=== PATIENT | female | born 1995 | race Caucasian/White ===

== ENCOUNTER 2024-06-06 20:42 | Emergency (ER) | payer BC, SELFPAY ==
--- OUTSIDE RECORDS SUMMARY | 2024-06-06 20:44 | XMS_ITS | Clinical Summary ---
Author Organization [email or web address] Address [address] [place] [address] Care Team Providers Care Knuckler Name Role Phone Peter Stern MD Unavailable + Tricia Holbrook RN Unavailable [phone] Unavailable Unavailab Stephanie AbdulSW Unavailable Un available Marisel Rosalielupis Wall NP Unavailable [phone] Damaris Fletcher DO Primary Care Provider [phone] Allergies No known active allergies Medications adapalene-benzoy l peroxide (EPIDUO) 0.1-2.5 % topical gelIndications:A cne, unspecified acne type Apply to face at bedtime. 45 g 1 12/28/2021 Active escitalopram oxalate (LEXAPRO) 20 mg tabletIndication s:MDD (major depressive disorder), recurrent episode, mild Take 1 Tablet (20 mg) by mouth once daily. 90 Tablet 3 01/04/2024 Active levothyroxine (SYNTHROID) 88 mcg tabletIndication s:Hypothyroidism (acquired) Take 1 Tablet (88 mcg) by mouth once daily. 90 Tablet 3 02/16/2024 Active Active Problems Patient Care Coordination No te Formatting of this note migh t be different from the original. Weight Management - Adult Surgical Program -- [place] Initial Consult 08/16/2018 with Peter Yap MD Intake: 238# (5'4; bmi 40.85) Planned Operation: Laparoscopic Sleeve Gastrectomy Payor: ALBERTO MOHAMUD / Plan: [employer]UMMINS [employer] / Product Type: *No Product type* / Est. Pgm Completion: February, Procedure Location: [place] Co-morbidities: Orders: Labs PENDING, ordered 08/16/2018 Imaging Abdominal Ultrasound PENDING, ordered 08/16/2018 Pre-Surgery Program Consults: Registered Dietitian: PENDING / 6 consecutive Mental Health: PENDING Referrals: - Sleep Medicine for AYDEN work-up: +2 during rooming - Hematology: N/A - Gastroenterology: N/A - Cardiology: N/A - PT: Referred? Exercise regimen (unless contraindicated) to improve pulmonary reserve prior to surgery, supervised by exercise therapist or other qualified professional -Tobacco Cessation: N/A ( reports that she quit smoking about 5 years ago. Her smoking use included cigarettes. She has a 0.10 pack-year smoking history. She has never used smokeless tobacco.) -Dental: N/A NOTES: Info Session: Online (Post Test Score: 100%) Binge Eating Disorder Concerns: 2?, not all questions answered in packet Problem Noted Date Diagnosed Date Cervical cancer screening 07/11/2021 Overview (02/24/2024): 01/2018 ASCUS/HPV negative 07/2021 NIL 02/2024 NIL/HPV negative. Plan: Pap/HPV due 02/2029. MDD (major depressive disord er), recurrent severe, without psychosis 2021 Posttraumatic stress disorder 07/16/2020 Morbid obesity with BMI of 40.0-44.9, adult 10/2018 Pseudotumor cerebri 09/29/2016 Hypothyroid 07/04/2013 Sleep walking 06/22/2013 Premenstrual tension 11/13/2010 Resolved Problems Problem Noted Date Diagnosed Date Resolved Date Moderate episode of recurren t major depressive disorder 07/16/2020 05/20/2021 Adjustment disorder with mix ed anxiety and depressed mood 09/30/2011 06/14/2018 Anxiety and depression 09/11/201108/29 Encounters Date Type Department Care Team Description 03/28/2024 9:30 AM MANAGER MANAGEMENT Orders Only [facility] [address] [place] [address] Lab, [place] [facility] 03/28/2024 Travel from Last 3 Months Immunizations Name Administration Dates Next Due AMB Influenza, IIV3 (Age >=3 years)(Flu Clinic Only) 02/06/2010 COVID-19 vaccine (echoecho NTRenRen [employer] 30mcg/0.3mL) PF, MDV 05/06/2021 DTaP 12/02/2000, 8,1996,10/04,1996 HIB PRP-D (ProHIBIT) 1996 HIB-HepB (Comvax) 1996,1996 Hepatitis A (Peds) 11/06/2014,02/06/2009 Hepatitis B (Peds) 1996 Human Papilloma Virus Vaccine 09/22/2011, 009,11/20/2008 INFLUENZA, IIV3 PF (AGE >= 6 MO) 02/16/2024 Inactivated Polio Vaccine 12/02/2000 Influenza A (H1N1), Inactivated 04/25/2009 Influenza, IIV3 (Age >=3 years) 12/31/19 12,02/08/2008,05/24/2006,04/09 Influenza, IIV4 12/23/2021,,04/21/2019,02/10,03/17/2016 Influenza,LAIV4 Live Intrana shawn (Flumist) 02/06/2009 MENINGOCOCCAL VACCINE 2 VIAL 2MO-55YO (MENVEO) 12/05/2013 MMR 12/02/2000,05/31/1997 Oral Polio Vaccine 1996,1996, 997 Tdap 04/21/2019,11/20/2008 Varicella Vaccine 02/06/2009,11/20/2008 Family History Medical History Relation Name Comments Other Father Severe mental i llness, Substance Abuse, Depression, Anxiety Hypertension Maternal Grandfather Cancer-breast Maternal Grandmother Lashaun Ann GI Disease Mother Felicity Persing ulcer Hypertension Mother Felicity Persing Thyroid Disease Mother Felicity Persing No Known Problems Paternal Grandfather No Known Problems Paternal Grandmother Relation Name Status Comments Father Other Maternal Grandfather Maternal Grandmother Lashaun Ann Mother Felicity Persing Alive Paternal Grandfather Paternal Grandmother Social History Tobacco Use Types Packs/Day Years Used Date Smoking Tobacco: Former Cigarettes 0.3 0.6 1 05/13/2019 - 10/31/2020 Smokeless Tobacco: Never Tobacco Cessation:Counseling Given: Not Answered Alcohol Use Standard Drinks/Week Comments Not Currently 0 (1 standard drink = 0.6 oz pur e alcohol) Rare PHQ-2 Answer Date Recorded PHQ-2 TOTAL SCORE 0 01/04/2024 Social Connections Answer Date Recorded Do you often feel lonely or isolated from those around you? 4 02/14/2024 Alcohol Use Answer Date Recorded How often do you have a drink containing alcohol ? 1 01/21/2022 How many drinks containing a lcohol do you have on a typical day when you are drinking? 0 01/21/2022 How often do you have five or more drinks on one occasion? 0 01/21/2022 Financial Resource Strain Answer Date R ecorded Difficulty of Paying Living Expenses 3 02/14/2024 Difficulty of Paying Living Expenses Not on file 02/14/2024 Food Insecurity Answer Date Recorded Do you worry your food will run out before you are able to buy more? 1 02/14/2024 Transportation Needs Answer Date Record ed Does lack of transportation keep you from medica l appointments? 1 02/14/2024 Does lack of transportation keep you from work, meetings or getting things that you need? 1 02/14/2024 Housing Stability Answer Date Recorded What is your housing situation today? 1 02/14/2024 Utilities Answer Date Recorded Do you have trouble paying f or utilities (for example, heat, electricity, water, phone)? 1 02/14/2024 Comments No Sex and Gender Information Value Date Recorded Sex Assigned at Female 02/08/2020 2:29 PM CDT Legal Sex Female 5:18 AM MANAGER MANAGEMENT Gender Identity Female 02/08/2020 2:29 PM CDT Sexual Orientation Bisexual 04/06/2022 9: 16 AM MANAGER MANAGEMENT Occupation Industry Job Start Date Job End Date Unemployed Not on file Not on file Not on file Obstetrics History Para Term AB IAB SAB Ectopic Multiple Livin g Live Births 1 0 0 0 1 0 0 0 0 0 Date Outcome GA Total Labor Labor/2nd/3rd Weight Sex Type Anes PTL Jaky A1 A5 Name Clin AB Comments G1- SAB at 9w3d with gestati onal sac measuring 5w Last Filed Vital Signs Vital Sign Reading Time Taken Comments Blood Pressure 110/76 02/16/2024 10:24 AM MANAGER MANAGEMENT Pulse 79 02/16/2024 10:24 AM MANAGER MANAGEMENT Temperature 36.8 C (98.3 F) 02/12/2020 2:36 PM MANAGER MANAGEMENT Respiratory Rate 16 04/16/2017 1:27 PM MANAGER MANAGEMENT Oxygen Saturation 100% 02/16/2024 10:24 AM MANAGER MANAGEMENT Inhaled Oxygen Concentration - - Weight 104.3 kg (230 lb) 02/16/2024 10:24 AM MANAGER MANAGEMENT Height 163.2 cm (5' 4.25) 02/16/2024 10:[address] Body Mass Index 39.17 02/16/2024 10:24 AM MANAGER MANAGEMENT Plan of Treatment Health Maintenance Due Date Last Done Comments COVID-19 vaccine series ( season) 2023 05/27/2021, 05/06/2021 Depression screening for age 12+ 01/03/2025 01/04/2024, 05/04/2023, 11/11/2022, Additional history exists BMI (ht and wt on same day) for age 18+ 02/15/2025 02/16/2024, 12/23/2021, 09/10/2021, Additional history exists Pap test for age 21-65 02/15/2029 , 08/08/2021, 02/09/2018, Additional history exists Tetanus booster 04/21/2029 04/21/2019, 11/20/2008 Tdap Completed 04/21/2019, 11/20/2008 HIV for age 15-65 Completed 08/08/2021, 07/24/2019 Influenza for age 9-49 Completed , 12/23/2021, 06/04/2020, Additional history exists Hepatitis C screening for age 18-79 Completed 03/28/2024, 02/16/2024 Pneumococcal series for age 6-49 Aged Out No longer eligible based on patient's age to complete this topic Procedures Procedure Name Priority Date/Time Associated Diagnosis Comments TSH WITH REFLEX Routine 03/28/2024 9:33 AM MANAGER MANAGEMENT Hypothyroidism (acquired) ANTI HCV Routine 03/28/2024 9:33 AM MANAGER MANAGEMENT Routine general medical examination at a health care facility TERRITORY ACCOUNT REPRESENTATIVE THIN PREP PAP AND HPV DNA - AGE 25 AND OVER ([facility]) Routine 02/16/2024 11:33 AM MANAGER MANAGEMENT Cervical cancer screening ANTI HIV 1/2 Routine 08/08/2021 11:45 AM CDT Screen for STD (sexually transmitted disease) from Last 3 Months or Most Recently Relevant to Health Maintenance Results * TSH WITH REFLEX (03/28/2024 9:33 AM MANAGER MANAGEMENT) TSH W/REFLEX TO FT4 0.77 mIU/L [facility] Comment: Reference Range > or = 20 Years 0.40-4.50 Ranges First trimester 0.26-2.66 Second trimester 0.55-2.73 Third trimester 0.43-2.91 Blood BLOOD SPECIMEN / Unknown 03/28/2024 9:33 AM MANAGER MANAGEMENT 03/28/2024 9:34 AM MANAGER MANAGEMENT us Damaris Fletcher DO CHEMISTRY Final Resu lt [facility] [address] [place] [address], [facility] [address] [place] [address] * ANTI HCV (03/28/2024 9:33 AM MANAGER MANAGEMENT) HEPATITIS C ANTIBODY NON-REACTI VE NON-REACT KAT [facility] Comment: HCV antibody was non-reactive. There is no laboratory evidence of HCV infection. In most cases, no further action is required. However, if recent HCV exposure is suspected, a test for HCV RNA (test code 43634) is suggested. For additional information please refer to http://education.Sodraft/faq/OUR28a9 (This link is being provided for informational/ educational purposes only.) Blood BLOOD SPECIMEN / Unknown 03/28/2024 9:33 AM MANAGER MANAGEMENT 03/28/2024 9:34 AM MANAGER MANAGEMENT us Damaris Keyanna Justine DO SEND OUTS Final Resu lt [employer] [facility] [address] [place] [address], [place] [phone] [facility] [address] [place] [address] * TERRITORY ACCOUNT REPRESENTATIVE THIN PREP PAP AND HPV DNA - AGE 25 AND OVER ([facility]) (02/16/2024 11:33 AM MANAGER MANAGEMENT) CLINICAL INFORMATION [facility] Comment:SCREENING PAP LMP [facility] Comment:02/01/[address] [facility] Comment:2021, NIL PREV. BX [facility] Comment:NO SOURCE TERRITORY ACCOUNT REPRESENTATIVE [facility] Comment:Cervix STATEMENT OF ADEQUACY [facility] Comment: Satisfactory for evaluation. Endocervical/transformation zone component present. INTERPRETATION/RESU LT [facility] Comment: Cytology Results: Negative for intraepithelial lesion or malignancy. COMMENT [facility] Comment: This Pap test has been evaluated with computer assisted technology. ADVERTISING PHOTOGRAPHER [facility] Comment: DARLENE KRAUSE(ASCP) CT Screening Location: [address] [address] THINPREP TIS PAP ALWAYS MESSAGE [facility] Comment: EXPLANATORY NOTE: The Pap is a screening test for cervical cancer. It is not a diagnostic test and is subject to false negative and false positive results. It is most reliable when a satisfactory sample, regularly obtained, is submitted with relevant clinical findings and history, and when the Pap result is evaluated along with historic and current clinical information. HPV HIGH RISK Not Detected NOT DETECTED [facility] Comment: Not Detected High Risk HPV types (16,18,31,33,35,39,45,51,52, 56,58,59,66,68) were not detected. Other HPV types which cause anogenital lesions may be present. The significance of the other types of HPV in malignant processes has not been established. Methodology: Real Time PCR Other (Other) 02/16/2024 11: 33 AM MANAGER MANAGEMENT 02/17/2024 3:17 AM MANAGER MANAGEMENT Damaris Fletcher DO PATHOLOGY/CYTOLOGY Final R esult [facility] [address] [place] [address], [facility] [address] [place] [address] * ANTI HIV 1/2 (08/08/2021 11:45 AM CDT) HIV-1/HIV-2 ANTIBODY Non-Reacti ve Non-Reacti ve 08/09/2021 6:09 AM CDT [facility] Comment:HIV-1 p24 and HIV-1/ HIV-2 Ab not detected. Blood BLOOD SPECIMEN / Unknown Venipuncture / Unknown 08/08/2021 11:45 AM CDT 08/08/2021 11:45 AM CDT Susan JAMES SEND OUTS Final Result [facility] [address] [place] [address], from Last 3 Months or Most Recently Relevant to Health Maintenance Insurance [facility] [place] [id number] Advance Directives * Full Code (Latest Code Status on File) Date Activated Date Inactivated Comments 05/05/2012 7:18 AM 05/05/2012 2:04 PM Care Teams Knuckler Relationship Specialty Start Date End Date Damaris Fletcher DO [address] [place] [address] PCP - General Family Practice 12/24/21 Peter Stern MD [address] [place] [address] Consulting Physician Surgery - General 08/16/18 Tricia Holbrook, BYRON [address] [place] [address] Registered Nurse Registered Nurse 08/16/[address] [place] [address] Registered Dietitian General Merchandise Manager 08/16/18 Stephanie Liu [facility] [address] [place] [address] Psychologist Skein Yard Drier 08/12/18 Rosalie Joiner NP [address] [place] [address] [address] Psychiatry Nurse Practitioner 08/06/20
[2024-06-06 20:47] VITALS: BP 150/78; PULSE 92; RESP 18; TEMP 36.8; O2SAT 99; BMI 41.2
--- NOTE | 2024-06-06 21:00 | ED.WOUNDLAC ---
HPI - Wound/Laceration General Chief Complaint: Laceration/Wound Stated Complaint: Vaginal Laceration Time Seen by Provider: 06/06/24 20:43 History of Present Illness HPI narrative: This 29-year-old female comes in with an injury to her vaginal area. She states that she was having intercourse and had sudden onset of pain and has a small laceration in the right labia area. Related Data Home Medications ?Medication ?Instructions ?Recorded ?Confirmed escitalopram oxalate 20 mg tablet 20 mg PO DAILY 06/06/24 06/06/24 levothyroxine 88 mcg tablet 88 mcg PO DAILY 06/06/24 06/06/24 Allergies Allergy/AdvReac Type Severity Reaction Status Date / Time No Known Drug Allergies Allergy Verified 06/06/24 20:49 Review of Systems Status of ROS: Reports: 10 or more systems reviewed and unremarkable except as noted in History and below Narrative: Constitutional: No fevers, no weight gain or loss. Eyes: No discharge. No vision changes. HENT: No congestion, no sore throat, no ear pain. Cardiovascular: No chest pain, no palpitations. Respiratory: No shortness of breath, no wheezes, no cough. Gastrointestinal: No abdominal pain, no vomiting, no diarrhea. Genitourinary: No dysuria, no hematuria. Vaginal laceration. Musculoskeletal: Normal range of motion. Skin: No rashes, no pruritis. Neurological: No dizziness, weakness, sensory change, speech change. Endo/Heme/Allergies: No bruising or bleeding. No polydipsia. Pysch: no suicidality, no anxiety, no insomnia. All other systems reviewed and are negative. [facility] Medical History (Updated 06/06/24 @ 21:04 by Wily Fontana MD) Tonsillitis ?J03.90 - Acute tonsillitis, unspecified (ICD-10) GERD (gastroesophageal reflux disease) ?K21.9 - Gastro-esophageal reflux disease without esophagitis (ICD-10) Anxiety ?F41.9 - Anxiety disorder, unspecified (ICD-10) Adjustment disorder with mixed anxiety and depressed mood ?F43.23 - Adjustment disorder with mixed anxiety and depressed mood (ICD-10) MDD (major depressive disorder) ?F32.9 - Major depressive disorder, single episode, unspecified (ICD-10) PTSD (post-traumatic stress disorder) ?F43.10 - Post-traumatic stress disorder, unspecified (ICD-10) Morbid obesity ?E66.01 - Morbid (severe) obesity due to excess calories (ICD-10) Pseudotumor cerebri ?G93.2 - Benign intracranial hypertension (ICD-10) Hypothyroid ?E03.9 - Hypothyroidism, unspecified (ICD-10) Sleep walking ?F51.3 - Sleepwalking [somnambulism] (ICD-10) Premenstrual tension ?N94.3 - Premenstrual tension syndrome (ICD-10) Surgical History (Updated 06/06/24 @ 20:54 by Óscar Deluna RN) History of wisdom tooth extraction ?K08.409 - Partial loss of teeth, unspecified cause, unspecified class (ICD-10) Hx of tonsillectomy ?Z90.89 - Acquired absence of other organs (ICD-10) History of laparoscopic cholecystectomy ?Z90.49 - Acquired absence of other specified parts of digestive tract (ICD-10) Social History Smoking Status: Former smoker Second hand tobacco smoke exposure: No How often do you have a drink containing alcohol: never AUDIT-C Alcohol total score: 0 Non-prescribed substance use: marijuana (any form) Exam Narrative: Exam Narrative: Constitutional: Well-developed, well-nourished, no acute distress. HEENT: Normocephalic, atraumatic. Neck: Normal range of motion. Nontender. Supple. Heart: Intact distal pulses. Lungs: No chest discomfort. No wheezes, rhonchi, or rales. Abdomen: Nontender. Genital urinary: Small superficial laceration in the right labia majora. No active bleeding. Back: Normal range of motion. Extremities: Normal range of motion. No injury. Skin: Intact. No rash. Warm. No erythema or pallor. Neurologic: No altered sensation. No weakness. Alert and oriented. Psychiatric: No suicidality. No anxiety or depression. No insomnia. Nursing notes and vitals signs are reviewed. Const: Vital Signs, click to edit/add: Vital Signs - 24 hr 06/06/24 20:47 Temperature 98.2 F Pulse Rate [Right Pulse Oximeter] 92 Respiratory Rate 18 Blood Pressure [Ri ght Upper Arm] 150/78 H Pulse Oximetry 99 Oxygen Delivery Me thod Room Air Course Vital Signs Vital signs: Initial Vital Signs Temperature 98.2 F 06/06/24 20:47 Temperature Source Temporal Artery Scan 06/06/24 20:47 Pulse Rate 92 06/06/24 20:47 Respiratory Rate 18 06/06/24 20:47 Blood Pressure 150/78 H 06/06/24 20:47 Blood Pressure Mean 102 06/06/24 20:47 Blood Pressure Position Sitting 06/06/24 20:47 Pulse Oximetry 99 06/06/24 20:47 Oxygen Delivery Method Room Air 06/06/24 20:47 Vital Signs Temperature 98.2 F 06/06/24 20:47 Pulse Rate 92 06/06/24 20:47 Respiratory Rate 18 06/06/24 20:47 Blood Pressure 150/78 H 06/06/24 20:47 Pulse Oximetry 99 06/06/24 20:47 Oxygen Delivery Method Room Air 06/06/24 20:47 Temperature 98.2 F 06/06/24 20:47 Pulse Rate 92 06/06/24 20:47 Respiratory Rate 18 06/06/24 20:47 Blood Pressure 150/78 H 06/06/24 20:47 Pulse Oximetry 99 06/06/24 20:47 Oxygen Delivery Method Room Air 06/06/24 20:47 MDM - Wound/Laceration MDM Narrative Medical decision making narrative: This patient comes in with a laceration to her vaginal labia. I examined her with the presence of a female attendant in the room and saw of a superficial laceration in the right labia majora. They skin edges are nicely approximated when at a typical rest position. I gave reassurance is and indicated that no repair is indicated and this should heal fine without any consequence. She was greatly relieved to hear this. Discharge Plan Discharge Clinical Impression: Laceration Patient Disposition: Home, Self-Care Condition: Stable Additional Instructions: Continue current plans. Use [id number] medicines as needed and directed. Follow up with MD return if worsening. Prescriptions: No Action levothyroxine 88 mcg tablet 88 mcg PO DAILY escitalopram oxalate 20 mg tablet 20 mg PO DAILY Stand Alone Forms: [employer] Info Instructions
[2024-06-06 21:08] VITALS: BP 132/71; PULSE 85; RESP 18; TEMP 36.8; O2SAT 99
[2024-06-06 21:09] VITALS: BP 132/71; PULSE 85; RESP 18; TEMP 36.8
--- OUTSIDE RECORDS SUMMARY | 2024-06-06 21:18 | XMS_ITS | Clinical Summary ---
Author Organization [facility] Address [address] [place] [id number] Care Team Providers Care Configuration Management Specialist Name Role Phone Peter Stern MD Unavailable + Tricia Holbrook RN Unavailable [phone] Unavailable Unavailab Stephanie AbdulSW Unavailable Un available Marisel Rosalielupis Wall NP Unavailable [phone] Damaris Fletcher DO Primary Care Provider [phone] Allergies No known active allergies Medications adapalene-benzoy [...] Weight Management - Adult Surgical Program -- [facility] Initial Consult 08/16/2018 with Peter Yap MD Intake: 238# (5'4; bmi 40.85) Planned Operation: Laparoscopic Sleeve Gastrectomy Payor: ALBERTO MOHAMUD / Plan: [employer]ANTAGE / Product Type: *No Product type* / Est. Pgm Completion: February, Procedure Location: [place] Co-morbidities: Orders: Labs PENDING, ordered 08/16/2018 Imaging [...] Department Care Team Description 03/28/2024 9:30 AM CAMPAIGN SPECIALIST Orders Only [facility] [address] [place] [address] Lab, [place] [facility] 03/28/2024 Travel from Last 3 Months Immunizations Name Administration Dates Next Due AMB Influenza, IIV3 (Age >=3 years)(Flu Clinic Only) 02/06/2010 COVID-19 vaccine ([employer] 30mcg/0.3mL) PF, MDV 05/06/2021 DTaP 12/02/2000, 8,1996,10/04,1996 [...] PM CDT Legal Sex Female 5:18 AM CAMPAIGN SPECIALIST Gender Identity Female 02/08/2020 2:29 PM CDT Sexual Orientation Bisexual 04/06/2022 9: 16 AM CAMPAIGN SPECIALIST Occupation Industry Job Start Date Job End [...] Comments Blood Pressure 110/76 02/16/2024 10:24 AM CAMPAIGN SPECIALIST Pulse 79 02/16/2024 10:24 AM CAMPAIGN SPECIALIST Temperature 36.8 C (98.3 F) 02/12/2020 2:36 PM CAMPAIGN SPECIALIST Respiratory Rate 16 04/16/2017 1:27 PM CAMPAIGN SPECIALIST Oxygen Saturation 100% 02/16/2024 10:24 AM CAMPAIGN SPECIALIST Inhaled Oxygen Concentration - - Weight 104.3 kg (230 lb) 02/16/2024 10:24 AM CAMPAIGN SPECIALIST Height 163.2 cm (5' 4.25) 02/16/2024 10:[address] Body Mass Index 39.17 02/16/2024 10:24 AM CAMPAIGN SPECIALIST Plan of Treatment Health Maintenance Due Date [...] TSH WITH REFLEX Routine 03/28/2024 9:33 AM CAMPAIGN SPECIALIST Hypothyroidism (acquired) ANTI HCV Routine 03/28/2024 9:33 AM CAMPAIGN SPECIALIST Routine general medical examination at a health care facility DIRECTOR OF CREATIVE SERVICES THIN PREP PAP AND HPV DNA - AGE 25 AND OVER ([facility]) Routine 02/16/2024 11:33 AM CAMPAIGN SPECIALIST Cervical cancer screening ANTI HIV 1/2 Routine 08/08/2021 11:45 AM CDT Screen for STD (sexually transmitted disease) from Last 3 Months or Most Recently Relevant to Health Maintenance Results * TSH WITH REFLEX (03/28/2024 9:33 AM CAMPAIGN SPECIALIST) TSH W/REFLEX TO FT4 0.77 mIU/L [facility] Comment: Reference Range > or = 20 Years 0.40-4.50 Ranges First trimester 0.26-2.66 Second trimester 0.55-2.73 Third trimester 0.43-2.91 Blood BLOOD SPECIMEN / Unknown 03/28/2024 9:33 AM CAMPAIGN SPECIALIST 03/28/2024 9:34 AM CAMPAIGN SPECIALIST us Damaris Fletcher DO CHEMISTRY Final Resu lt [facility] [address] [place] [address], [facility] [address] [place] [address] * ANTI HCV (03/28/2024 9:33 AM CAMPAIGN SPECIALIST) HEPATITIS C ANTIBODY NON-REACTI VE NON-REACT KAT [facility] Comment: HCV antibody was non-reactive. There is no laboratory evidence of HCV infection. In most cases, no further action is required. However, if recent HCV exposure is suspected, a test for HCV RNA (test code 37682) is suggested. For additional information please refer to http://education.Cloudacc/faq/UQU44a2 (This link is being provided for informational/ educational purposes only.) Blood BLOOD SPECIMEN / Unknown 03/28/2024 9:33 AM CAMPAIGN SPECIALIST 03/28/2024 9:34 AM CAMPAIGN SPECIALIST us Damaris Keyanna Justine DO SEND OUTS Final Resu lt [facility] [address] [place] [address], [place] [phone] [facility] [address] [place] [address] * DIRECTOR OF CREATIVE SERVICES THIN PREP PAP AND HPV DNA - AGE 25 AND OVER ([employer]) (02/16/2024 11:33 AM CAMPAIGN SPECIALIST) CLINICAL INFORMATION [facility] Comment:SCREENING PAP LMP [facility] Comment:02/01/24 PREV. PAP [facility] Comment:2021, NIL PREV. BX [facility] Comment:NO SOURCE DIRECTOR OF CREATIVE SERVICES [facility] Comment:Cervix STATEMENT OF ADEQUACY [facility] Comment: Satisfactory for evaluation. Endocervical/transformation zone component present. INTERPRETATION/RESU LT [facility] Comment: Cytology Results: Negative for intraepithelial lesion or malignancy. COMMENT [facility] Comment: This Pap test has been evaluated with computer assisted technology. PESTICIDE APPLICATOR [facility] Comment: DARLENE KRAUSE(ASCP) CT Screening Location: [address] [address] THINPREP TIS PAP ALWAYS MESSAGE [facility] Comment: EXPLANATORY NOTE: The Pap is a [...] HPV HIGH RISK Not Detected NOT DETECTED [facility] Comment: Not Detected High Risk HPV types (16,18,31,33,35,39,45,51,52, 56,58,59,66,68) were not detected. Other HPV types which cause anogenital lesions may be present. The significance of the other types of HPV in malignant processes has not been established. Methodology: Real Time PCR Other (Other) 02/16/2024 11: 33 AM CAMPAIGN SPECIALIST 02/17/2024 3:17 AM CAMPAIGN SPECIALIST Damaris Fletcher DO PATHOLOGY/CYTOLOGY Final R esult [facility] [address] [place] [address], [facility] [address] [place] [address] * ANTI HIV 1/2 (08/08/2021 11:45 AM CDT) HIV-1/HIV-2 ANTIBODY Non-Reacti ve Non-Reacti ve 08/09/2021 6:09 AM CDT [facility] Comment:HIV-1 p24 and HIV-1/ HIV-2 Ab not detected. Blood BLOOD SPECIMEN / Unknown Venipuncture / Unknown 08/08/2021 11:45 AM CDT 08/08/2021 11:45 AM CDT Susan JAMES SEND OUTS Final Result [facility] [address] [place] [address], from Last 3 Months or Most Recently Relevant to Health Maintenance Insurance [facility] ADVANTAGE [place] [id number] Advance Directives * Full Code (Latest Code Status on File) Date Activated Date Inactivated Comments 05/05/2012 7:18 AM 05/05/2012 2:04 PM Care Teams Configuration Management Specialist Relationship Specialty Start Date End Date Damaris Fletcher DO [address] [place] [address] PCP - General Family Practice 12/24/21 Peter Stern MD [address] [place] [address] Consulting Physician Surgery - General 08/16/18 Tricia Holbrook, [place] [address] [place] [address] Registered Nurse Registered Nurse 08/16/[address] [place] [address] Registered Dietitian Laboratory Tester 08/16/18 Stephanie Liu [facility] [address] [place] [address] Psychologist Driver Wheelchair 08/12/18 Rosalie Joiner NP [address] [place] [address] Psychiatry Nurse Practitioner 08/06/20
== END 2024-06-06 21:20 | disposition home or self-care (01) ==
LOC: ED 21:16
PROVIDERS: Emergency Provider Emergency Medicine Emergency Medical Services; PCP Family Medicine
DX: S31.41XA Laceration without foreign body of vagina and vulva, initial encounter (principal)
CPT/HCPCS: 99283; 99284